=== PATIENT | male | born 1950 | race Caucasian/White ===

== ENCOUNTER → 2018-09-05 10:58 | Outpatient (CLI) | payer MEDICARE, SELFPAY ==
[2017-08-02 13:59] VITALS: BMI 28.5
[2018-09-05 11:33] LABS: Cholesterol 159 mg/dL (200); High Density Lipoprotein 42 mg/dL; Triglycerides 159 mg/dL; Very Low Density Lipoprotein 32 mg/dL (5-40)
== END ==
PROVIDERS: Family Provider Family Medicine; PCP Family Medicine; Referring Provider Family Medicine; Visit Provider Family Medicine
DX: I10 Essential (primary) hypertension (principal); E78.2 Mixed hyperlipidemia
CPT/HCPCS: 80061

== ENCOUNTER → 2019-06-02 16:54 | Outpatient (CLI) | payer MEDICARE, SELFPAY ==
[2017-08-02 13:59] VITALS: BMI 28.5
[2019-06-02 18:07] LABS: ALB/GLOB Ratio 1.3 RATIO (0.9-2.4); AST(SGOT) 25 U/L (15-37); Alanine Aminotransfer ALT/SGPT 46 U/L (16-61); Albumin, Serum 4.3 g/dL (3.2-5.0); Alkaline Phosphatase 71 U/L (45-117); Anion Gap 7 (5-15); BUN 18 mg/dL (7-18); BUN/Creat Ratio 18.6 RATIO (10-20); Calcium,Total 8.9 mg/dL (8.5-10.1); Chloride 104 mmol/L (98-107); Cholesterol 163 mg/dL (200); Creatinine, Serum 0.97 mg/dL (0.70-1.30); EST Glomerular Filtration Rate 82 mL/min (>60); Est Glom Filt Rate - Afr Amer 99 mL/min (>60); Globulin 3.4 g/dL (2.2-4.2); Glucose 84 mg/dL (74-106); High Density Lipoprotein 52 mg/dL; Magnesium 2.4 mg/dL (1.6-2.6); PSA,Total- Diagnostic 2.53 ng/mL (0.0-4.0); Potassium 3.9 mmol/L (3.5-5.1); Protein, Total 7.7 g/dL (6.4-8.2); Sodium Level 140 mmol/L (136-145); Triglycerides 76 mg/dL; Very Low Density Lipoprotein 15 mg/dL (5-40)
[2019-06-02 18:16] LABS: Color, Urine Yellow (Yellow); Glucose, Dipstick Normal (Normal); Ketone-Dipstick Negative (Negative); Leukocyte Esterase-Dipstick Negative /ul (Negative); Nitrite-Dipstick Negative (Negative); Occult Blood-Urine Negative /ul (Negative); Protein-Dipstick Negative (Negative); Urine Bilirubin Dipstick Negative (Negative); Urine Clarity Clear (Clear); Urine Urobilinogen Normal (Normal)
== END ==
PROVIDERS: Family Provider Family Medicine; PCP Family Medicine; Referring Provider Family Medicine; Visit Provider Family Medicine
DX: E78.2 Mixed hyperlipidemia (principal); I10 Essential (primary) hypertension; K21.9 Gastro-esophageal reflux disease without esophagitis; N42.9 Disorder of prostate, unspecified; Z79.899 Other long term (current) drug therapy
CPT/HCPCS: 80053; 80061; 81002; 83735; 84153

== ENCOUNTER → 2019-06-11 10:46 | Outpatient (CLI) | payer MEDICARE, SELFPAY ==
[2017-08-02 13:59] VITALS: BMI 28.5
== END ==
PROVIDERS: Family Provider Family Medicine; PCP Family Medicine
DX: J02.9 Acute pharyngitis, unspecified (principal)
CPT/HCPCS: 87880

== ENCOUNTER 2024-01-02 10:30 | Outpatient (RCR) | payer MEDICARE, SELFPAY ==
--- NOTE | 2023-09-20 13:58 | HP.PTEVAL_ITS ---
Patient's Visit Information Visit Information Visit Information: NICK MESA is a 73 year old M referred to Physical Therapy by Dr. Shane Marie MD with a diagnosis of L RCR 09.02.23. 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 He states that in late February or early Mar he was inspecting a heavy bee hive and it shifted and he tried to catch it, injuring his arm. We waited for several months then sought the help of Dr Marie. Dr Marie performed a L RCR repair on 09.02.23. He is accompanied by his today. He mentioned that he is sleeping in a recliner but not resting well. Pain Right Shoulder: Pain Intensity (Out of 10): 2 Pain Intensity Range: 1 and 7 Objective Objective: Incision site is healing well no seepage or drainage. Denies any fever or chills. Today I redressed the incision site with smaller steristrips. Rate pain 2/10 currently. 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 PROM at this time is 0 ext rot, 50 shd flexion and a 90 abd. All other ROM and MMT was deferred to secondary to the healing process Balance/Special Test Scores Quick DASH Score: 68.1800 Goals Goal 1:: Understand the healing process, protocol and HEP Goal Time Frame: 1 Week Goal 2:: Improve ROM 10% as approved by physician. Goal Time Frame: 2 Weeks Goal 3:: Progress thru Phase 1-3 as directed by physician. Goal Time Frame: 12-16 Weeks Rehabilitation Potential Physical Therapy Diagnosis: L RCR Rehabilitation Potential: Good Anticipated Interventions Patient/Client Instruction: Educate patient on: Condition, Plan of Care and Risk Factors For the Purpose of:: To decrease pain, To increase ROM, To improve ability to perform ADL's, To increase flexibility/ROM and To assume or resume ADL's Therapeutic Exercise to Include: Strength training, Endurance training, Coordination, Flexibilty training, Passive ROM and Active ROM For the Purpose of:: To decrease pain, To decrease swelling/inflammation, To increase ROM and To assume or resume ADL's Manual Therapy Techniques to Include: Massage, Scar massage, Mobilization and Passive ROM For the Purpose of:: To decrease pain, To decrease swelling/inflammation, To increase ROM and To assume or resume ADL's TENS: Yes (To modulate pain to decrease atrophy.) For the Purpose of:: To decrease pain, To decrease swelling/inflammation, To increase ROM, To increase flexibility/ROM and To assume or resume ADL's Text: Thank you for the opportunity to evaluate your patient. For Medicare and Medicare HMO plans, please review the plan of care and approve it. It will need to be FAXED BACK to us at [phone] for Medicare purposes. For Medicare only, by signing this I certify the plan of care. Please let me know if there are questions or concerns regarding this plan of care. Physician Signature: Date:
--- NOTE | 2024-01-02 11:20 | HP.PTDCSUM ---
Discharge Summary D/C summary: It has been my pleasure to treat NICK MESA referred by Dr. Shane Marie MD, with the diagnosis of L RCR 1.8.24 for a total of 16 visit(s). Discharge Date: 01/02/24 Please see the following information for a summary of their discharge status. Subjective Subjective: Saw Dr marie and he is going to follow up with me in 8 weeks. Gave me a red band and said to do external rotation? 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 Pain Right Shoulder: Pain Intensity (Out of 10): 1 Overall Improvement % Improvement: 85 Objective Objective/Function: ROM WFLs lacks just a little bit of external rotation on L side. MMT R 36 int/23 ext L 26 int /16 ext which indicates a deficient but improving since fall. Goals Goal 1:: Understand the healing process, protocol and HEP Goal Progress: Progressing Goal 2:: Improve ROM 10% as approved by physician. Goal Progress: Goal Met Goal 3:: Progress thru Phase 1-3 as directed by physician. Goal Progress: Progressing Plan Plan: Discharge to HEP D/C Information Discharge Comments: Could have used more PT Vists for strengthing as he demonstrates a deficient L vs. R d/c sentence: If there are questions or concerns regarding this patient's physical therapy, please feel free to call me at [phone]. Thank you for the referral of this patient. Sincerely, Lucien Torres, PT, GOYO, SCS, CSCS Balance/Gait/Functional tests Balance/Special Test Scores Quick DASH Score: 27.2725 Improvement % Improvement: 85
== END 2024-01-02 12:36 | disposition home or self-care (01) ==
LOC: PT 10:30
PROVIDERS: PCP Family Medicine; Referring Provider Orthopaedic Surgery; Visit Provider Orthopaedic Surgery
DX: M75.102 Unspecified rotator cuff tear or rupture of left shoulder, not specified as traumatic (principal); M75.42 Impingement syndrome of left shoulder
CPT/HCPCS: 97014; 97110; 97140; 97162; G0283